=== PATIENT | female | born 1980 | race Caucasian/White ===

== ENCOUNTER 2017-12-09 23:58 | Emergency (ER) | payer OTHER ==
[~2017-12-09] VITALS: Ht 165.1 cm; Wt 63.0 kg
[~2017-12-09 23:58] MED LIST: ENDOCET 5-3251 EACH PO; FLEXERIL10 MG PO; GILDESS FE 1-21 EACH PO; KEFLEX500 MG PO; LORTAB 5-325 M1 EACH PO; MOTRIN800 MG PO; NAPROSYN500 MG PO; NOHOMEMEDS; PERCOCET 5/31 TABLET PO; PROMETHAZINE HC25 M1 PO; PROZAC20 MG PO; ULTRACET1 TABLET PO; ZOFRAN4 MG PO
[2017-12-10] MEDS ORDERED: INDOCIN50 MG PO (00:46)
[2017-12-10 01:00] VITALS: BP 126/77
== END 2017-12-10 01:37 | disposition home or self-care (01) ==
LOC: EME 23:58
DX: M25.571 Pain in right ankle and joints of right foot (principal); F17.200 Nicotine dependence, unspecified, uncomplicated
CPT/HCPCS: 73610; 99281; 99284